=== PATIENT | male | born 1950 | race Caucasian/White ===

== ENCOUNTER 2017-04-10 06:43 | Emergency (ER) | payer BC ==
--- NOTE | 2017-04-10 08:58 | ER Document Report ---
HPI - HPI Pain Level: 2 Notes: Patient is a 66-year-old male presents to the ED complaining of left knee pain status post injury this morning. Patient states that he is going on the stairs on his 1 foot slipped out from under him and he smacked his knee against a post along the railing. Patient states that he has had immediate pain in his knee has been unstable since that time. Patient is unable to ambulate without any discomfort. The pain does not radiate. Pain location is specified to just proximal to the knee. He has not noticed any obvious swelling or bruising. He has not had anything for his symptoms. Denies any significant past medical history. No drug allergies. Denies any fever, headaches, dizziness, chest pain , palpitations, shortness of breath, wheeze, cough, abdominal pain, nausea/ vomiting, rash. Denies any head/neck injury/pain. - ROS Notes: REVIEW OF SYSTEMS: CONSTITUTIONAL : Denies fever, chills, or sweats. Denies recent illness. EENT: Denies eye, ear, throat, or mouth pain or symptoms. Denies nasal or sinus congestion or discharge. Denies throat, tongue, or mouth swelling or difficulty swallowing. CARDIOVASCULAR: Denies chest pain. Denies palpitations or racing or irregular heart beat. Denies ankle edema. RESPIRATORY: Denies cough, cold, or chest congestion. Denies shortness of breath, difficulty breathing, or wheezing. GASTROINTESTINAL: Denies abdominal pain or distention. Denies nausea, vomiting , or diarrhea. Denies blood in vomitus, stools, or per rectum. Denies black, tarry stools. Denies constipation. GENITOURINARY: Denies difficulty urinating, painful urination, burning, frequency, blood in urine, or discharge. MUSCULOSKELETAL: see hpi SKIN: Denies rash, lesions or sores. NEUROLOGICAL: see hpi ALL OTHER SYSTEMS REVIEWED AND NEGATIVE. Dictation was performed using [employer] voice recognition software - CARDIOVASCULAR Cardiovascular: DENIES: Chest pain - DERM Skin Color: Normal Past Medical History - Social History Smoking Status: Never Smoker Frequency of alcohol use: None Drug Abuse: None Family History: Reviewed & Not Pertinent Patient has suicidal ideation: No Patient has homicidal ideation: No - Past Medical History Cardiac Medical History: Reports: Hx Hypertension Renal/ Medical History: Denies: Hx Peritoneal Dialysis - Immunizations Hx Diphtheria, Pertussis, Tetanus Vaccination: Yes Vertical Provider Document - CONSTITUTIONAL Notes: PHYSICAL EXAMINATION: GENERAL: Well-appearing, well-nourished and in no acute distress. HEAD: Atraumatic, normocephalic. NECK: Normal range of motion, supple without lymphadenopathy LUNGS: Breath sounds clear to auscultation bilaterally and equal. No wheezes rales or rhonchi. HEART: Regular rate and rhythm without murmurs, rubs, gallops. Musculoskeletal: Left knee: FROM to passive. LROM to active. Strength 3+/5 to leg extension. 5+/5 to flexion. + sulcus sign to the prox patella/femur anteriorly. + tenderness to palp of the soft tissue prox to the knee. No patellar gliding with quad contraction. No bony tenderness of the knee, tibia/ femur. Ligamentous feels generally stable. Extremities: No cyanosis, clubbing, or edema b/l. Peripheral pulses 2+. Capillary refill less than 3 seconds. NEUROLOGICAL: Cranial nerves grossly intact. Normal speech, normal gait. Normal sensory, motor exams PSYCH: Normal mood, normal affect. SKIN: Warm, Dry, normal turgor, no rashes or lesions noted. - INFECTION CONTROL TRAVEL OUTSIDE OF THE [place] IN LAST 30 DAYS: No - RESPIRATORY O2 Sat by Pulse Oximetry: 99 Course - Re-evaluation Re-evalutation: 04/10/17 10:00 Patient is afebrile, well-hydrated, 66-year-old male presents to the ED with left leg pain, quadricep tendon rupture, avulsion fracture, and loose bodies based on exam today and imaging. Vitals are stable. PE otherwise unremarkable. Knee immobilizer placed, crutches given. Directions given for patient to stop by the orthopedic office. I did call the orthopedic office to give them a heads up of becoming over to their office, but patient would like to go to [place] and states he will call the surgeon there on their way back home. Conservative measures for symptoms otherwise. Recheck with your PCM in 2 -3 days. An appointment with orthopedics as soon as possible. Return to the ED with any worsening/concerning symptoms otherwise as reviewed. Patient and are in agreement. - Vital Signs Vital signs: Temp Pulse Resp BP Pulse Ox 97.5 F 62 18 138/62 H 99 04/10/17 06:50 04/10/17 06:50 04/10/17 06:50 04/10/17 06:50 04/10/17 06:50 Discharge - Discharge Clinical Impression: Thigh pain Qualifiers: Laterality: left Qualified Code(s): M79.652 - Pain in left thigh Quadriceps tendon rupture Qualifiers: Encounter type: initial encounter Laterality: left Qualified Code(s): S76.112A - Strain of left quadriceps muscle, fascia and tendon, initial encounter Condition: Stable Disposition: HOME, SELF-CARE Instructions: Use of Crutches ([facility]), Ice & Elevation ([facility]), Knee Immobilizing Splint ([facility]), Oral Narcotic Medication ([facility]) Additional Instructions: Rest, Ice, Compression, Elevation Use splint as directed Tylenol/ibuprofen as needed Moist heat and massage may help F/u with your PCP in 2-3 days for a recheck Schedule an appointment with Orthopedics as soon as you are able for evaluation. Go to their office upon discharge, today. Return to the ED with any worsening pain, swelling, numbness/tingling, muscle weakness, development of fever, or any other concerning/worsening symptoms otherwise. Prescriptions: Oxycodone HCl [Oxycodone HCl 10 MG Tablet] 1 - 2 tab PO Q6H PRN #15 tablet PRN Reason: PAIN Referrals: [facility] ([facility]) [Provider Group] - Follow up as needed
--- NOTE | 2017-04-10 09:23 | RADIOLOGY REPORT (SQ) ---
EXAM DESCRIPTION: KNEE LEFT 4 VIEW COMPLETED DATE/TIME: 04/10/2017 8:17 am REASON FOR STUDY: fall with injury COMPARISON: None. NUMBER OF VIEWS: Four views. TECHNIQUE: AP, lateral, and both oblique radiographic images acquired of the left knee. LIMITATIONS: None. FINDINGS: MINERALIZATION: Normal. BONES: Moderate-sized calcaneal spur at the insertion the quadriceps tendon. Calcification on the la teral view overlying the quadriceps tendon or the suprapatellar bursa. Differential includes avulsio n of the quadriceps tendon, calcific tendinitis and loose body in the suprapatellar bursa. JOINT: Small joint effusion. Small calcific density overlying the femorotibial joint suggesting loos e body. SOFT TISSUES: No soft tissue swelling. No radio-opaque foreign body. OTHER: No other significant finding. IMPRESSION: Calcification on the lateral view anteriorly with differential including avulsion injury of the quadriceps tendon, calcific tendinitis and loose body in the suprapatellar bursa. There is a dditional possible small loose body. TECHNICAL DOCUMENTATION: JOB ID: [id number] [employer]- All Rights Reserved
[2017-04-10 10:08] VITALS: BP 136/63
== END 2017-04-10 10:08 | disposition home or self-care (01) ==
LOC: ER 06:43
DX: S76.112A Strain of left quadriceps muscle, fascia and tendon, initial encounter (principal); M25.562 Pain in left knee; M79.652 Pain in left thigh; W22.09XA Striking against other stationary object, initial encounter; I10 Essential (primary) hypertension
CPT/HCPCS: 99283; 73562; L1830